=== PATIENT | female | born 1945 | race Caucasian/White ===

== ENCOUNTER 2017-10-27 07:36 | Day surgery (SDC) | payer MEDICARE, OTHER, SELFPAY ==
--- NOTE | 2017-10-22 10:25 | EKG12_ITS ---
Test Reason : PRE-OP Blood Pressure : / mmHG Vent. Rate : 084 BPM Atrial Rate : 084 BPM P-R Int : 116 ms QRS Dur : 082 ms QT Int : 368 ms P-R-T Axes : 044 019 070 degrees QTc Int : 434 ms Normal sinus rhythm Normal ECG Confirmed by RIMA JENKINS, SALAZAR ([id number]), clinical editor JOSÉ MANUEL OLIVA ([id number]) on 10/23/2017 12:58:08 PM Referred By: Celestino Castillo Confirmed By:SALAZAR ABARCA MD
[2017-10-22 10:28] LABS: Hematocrit 39.2 % (37-47); Hemoglobin 13.2 g/dl (12.0-15.0); Mean Corp Hgb Conc 33.7 g/gl (32-36); Mean Corpuscular Hgb 29.1 pg (27.0-32.0); Mean Corpuscular Volume 86.5 fL (81-99); Mean Platelet Vol. 9.1 fl (6.2-12.0); Platelet Count 305 K/mm3 (150-450); RBC Distribution Width CV 13.5 % (11.6-14.6); Red Blood Count 4.53 M/mm3 (4.2-5.4); White Blood Count 11.5 K/mm3 (4.4-11.0)
[2017-10-22 10:33] LABS: Scan Indicated on CBC? Y/N NO
[2017-10-22 11:08] LABS: Anion Gap 9 (5-15); BUN 15 mg/dL (7-18); BUN/Creat Ratio 16.1 RATIO (10-20); Calcium,Total 9.3 mg/dL (8.5-10.1); Chloride 99 mmol/L (98-107); Creatinine, Serum 0.93 mg/dL (0.55-1.02); EST Glomerular Filtration Rate 62 mL/min (>60); Est Glom Filt Rate - Afr Amer 76 mL/min (>60); Glucose 189 mg/dL (74-106); Potassium 3.9 mmol/L (3.5-5.1); Sodium Level 136 mmol/L (136-145)
[2017-10-27] VITALS (8 sets, daily range): BP systolic 131–161; BP diastolic 50–86; PULSE 60–70; RESP 14–18; TEMP 35.8–37.2; O2SAT 92–98; BMI 25.2
--- NOTE | 2017-10-27 | GALL_PTH ---
PATIENT: DEJA CHAWLA LOC: [facility] [place] U#:[id number] AGE/SX: 72/F ROOM: RE10/27/[address]: Dr. Celestino Castillo MD : [id number] BED: DIS: 10/27/2017 SPEC #: [id number] RECD: 10/27/17 13:49 STATUS: ENA CARLOS #: [id number] HENRIK: 10/27/17 00:[address]: Celestino Castillo DEPT: SURGICAL PATHOLOGY RECD BY: Robert Treviño ENTERED: 10/27/17 13:50 SP TYPE: MICA GRAHAM DR: Dr. Laureano Lawson MD Tissues: Gallbladder, NOS Procedures: Surgery Specimen Level III HEADER OPERATION: Laparoscopic cholecystectomy with intraoperative cholangiogram PRE-OP DIAGNOSIS: Gallbladder mass TISSUE SUBMITTED: Gallbladder MICROSCOPIC DIAGNOSIS Gallbladder: Chronic cholecystitis and cholelithiasis. SJ:she 10/28/17 MICROSCOPIC DESCRIPTION Slides are reviewed. GROSS DESCRIPTION Received is one container labeled with the patient's name and designated gallbladder. The specimen consists of a gallbladder measuring 8.5 cm in length and 3.5 cm in diameter. The external surface is pink-de leon, smooth and glistening for the most part. Focally it is granular, hemorrhagic and contains cautery artifact. The gallbladder contains green-yellow mucoid bile and multiple black irregular stones measuring in aggregate 3 x 2.5 x 1 cm and 0.1 to 0.6 cm in greatest dimension. The mucosa is bile-stained and without any mass lesions. The gallbladder wall measures 0.2 cm in thickness. Kiln Puller sections from the gallbladder and the cystic duct are submitted in one cassette. / SJ:rg 10/27/17 TC:3 CPT: 70407
--- NOTE | 2017-10-27 09:50 | RAD_ITS ---
STUDY: INTRAOPERATIVE CHOLANGIOGRAM. REASON FOR EXAM: Female, 72 years old. Laparoscopic cholecystectomy. FLUOROSCOPY TIME (if supplied): (0:18) minutes/seconds TECHNIQUE: An intraoperative cholangiogram was performed by the surgeon. Imaging was submitted. COMPARISON: None. FINDINGS: The common bile duct is unremarkable. No intraluminal filling defect is seen. There is free flow of contrast into the duodenum. RAD/Cholangiogram/ O R,Initial IMPRESSION: Unremarkable intraoperative cholangiogram. Electronically Signed: Ryne Tolilver MD at 10:21 EST Tel [phone], Service support ,
[2017-10-27] MEDS: Cefazolin 2 GM in 0.9% Normal Saline 100 ML IV (10:10)
--- NOTE | 2017-10-27 10:22 | DCINST_ITS ---
Discharge Diet: Light diet - advance as tolerated - if you have questions about your diet instructions, please talk to you doctor. Discharge Activity: May Not Drive - for 1 week or while taking narcotic pain medicine. May shower in (days): 1 Lifting Restrictions: 10 pounds Call your doctor if your incision/area has: Continuous Slow Oozing, Sudden Increased Bleeding, Increased Pain/ Swelling, Increased Redness, Foul Smelling Discharge Call your doctor if you observe: Fever of 101 or Higher Suture Line Care: Avoid Pulling/Pushing, Avoid Pinching/Bending Additional Dressing/Incision Instructions:: Change or remove dressing in 4 days. Leave steri-strips in place for 1 week. Allergies/Adverse Reactions: Allergies Bleach (Sodium Hypochlorite) Allergy (Intermediate, Verified 10/20/17 08:41) lips swell Medications to take at Discharge prednisone 20 mg tablet 30 mg PO QDAY 09/16/17 ranitidine 150 mg tablet 150 mg PO BID 60 Days #120 tab 09/17/17 Hydrocodone Bitart/Apap 5-325 [[place] 5MG-325MG] 1 tablet PO Q6H PRN PRN 4 Days # 10 tablet 10/27/17 The following prescriptions were given: Hydrocodone Bitart/Apap 5-325 [[place] 5MG-325MG] 1 tablet PO Q6H PRN PRN 4 Days # 10 tablet PRN Reason: Pain Primary Care Physician: Laureano Lawson MD [Primary Care Provider] - Please Follow Up With: Celestino Castillo MD - [phone] When: Call to make an appointment to be seen in about 10 days.
[2017-10-27] MEDS: Hydrocortisone Sod Succinate 100 MG/2 ML Vial IV (10:40)
[2017-10-27] MEDS: Bupivacaine Mpf 0.5% 30 ML VIAL (11:10)
--- NOTE | 2017-10-27 11:17 | OP.PCM_ITS ---
Problem List (1) Gallbladder mass Status: Acute Report of Operation Date of Procedure: 10/27/17 Pre-Operative Diagnosis: Gallbladder mass, chronic cholecystitis cholelithiasis Post-Operative Diagnosis: Pathology pending Surgery/Procedure Performed:: Laparoscopic cholecystectomy with cholangiography Description of Surgical Findings:: Timeout and informed consent was obtained. 72-year-old female was taken the operating. She underwent general endotracheal intubation anesthesia after placing supine on the table. She also received Solu-Cortef 100 mg intravenously preoperatively a steroid dosing. The abdomen was sterilely prepped and draped. Because of previous infraumbilical incision I made a superior vertical umbilical incision. 0.5% Marcaine was used as local anesthetic. Throughout the procedure total 30 cc was skin sites were pre- anesthetized. Sharp incision was made surgery superior to the umbilicus holding sutures of 0 Vicryl placed sharp dissection performed direct access gained to the abdomen. Pulmonary trocar was inserted and the abdomen was insufflated CO2 to pressure of 10 mmHg pressure. There were extensive adhesions of omentum completely encompassing the anterior abdominal wall from the umbilicus inferiorly. I made no attempt to do a lysis of adhesions. Five- minute trochars were placed in the epigastric right upper quadrant and xiphoid area. The gallbladder had several adhesions of omentum to it. These were not densely adherent. I was able to dissect these free bluntly and obtain hemostasis with Hem-o-larissa clips. Then the infundibular the gallbladder was dissected free and immediately the cystic duct cystic artery was immediately identified. 2 Hem-o-larissa clips were placed proximally the cystic artery and one distally prior to transecting it. A Hem-o-larissa clip was placed on the cystic duct. A 14-gauge Angiocath was advanced through the abdominal wall and then a small belem was made in the cystic duct cholangiogram catheter was inserted fluoroscopically controlled claims grams were obtained demonstrating normal ductal anatomy. There was free flow into the small bowel. The cholangiogram catheter was removed and 2 more Hem-o-larissa clips were placed on the cystic duct prior to transecting it. The gallbladder was then dissected free from the liver bed using electrocautery. Complete hemostasis was intact. There is absolutely no spillage of bile or gallbladder contents throughout the entire procedure. A very precise and clean removal was achieved. There is no evidence of any through and through wall penetration or adherence. The gallbladder was immediately placement in retrieval bag. The right upper quadrant was irrigated and aspirated free of excess fluid. The gallbladder was exited the umbilicus. The remaining trochars removed under visualization. The abdomen was allowed to deflate of the CO2. The fascia at the umbilicus approximated with interrupted 0 Vicryl figure 8 suture. Skin edges proximate interrupted 4 Monocryl subdermal stitches. Steri-Strips Telfa and OpSite dressings applied. Sponge instrument and needle counts were reported the surgeon to be correct. Specimens gallbladder. Drains none. Blood loss minimal. Celestino Castillo M.D., F.A.C.S. Type of Anesthesia:: General Anesthesiologist: Alexandr Ledezma
== END 2017-10-27 15:03 | disposition home or self-care (01) ==
LOC: SDC 07:36 → AC 07:37
PROVIDERS: Family Provider Family Medicine; PCP Family Medicine; Visit Provider Surgery
PROC: (CPT 47610; principal; 2017-10-27 09:30)
DX: K80.10 Calculus of gallbladder with chronic cholecystitis without obstruction (principal); Q44.1 Other congenital malformations of gallbladder; M35.3 Polymyalgia rheumatica; E78.5 Hyperlipidemia, unspecified; G47.30 Sleep apnea, unspecified; M19.90 Unspecified osteoarthritis, unspecified site; K21.9 Gastro-esophageal reflux disease without esophagitis; Z78.0 Asymptomatic menopausal state; Z79.52 Long term (current) use of systemic steroids; Z90.710 Acquired absence of both cervix and uterus; Z87.891 Personal history of nicotine dependence
CPT/HCPCS: 47563; 36415; 74300; 76000; 80048; 85027; 88304; 93005; J3010; J7120; J2405